=== PATIENT | male | born 1945 | race Caucasian/White ===

== ENCOUNTER → 2018-01-31 | Outpatient (CLI) | payer MEDICARE ==
[2018-01-31 09:02] VITALS: BP 158/92; PULSE 54; RESP 16; TEMP 98.2
== END | disposition home or self-care (01) ==
LOC: PROCWHC3 08:13
PROVIDERS: ATTEND Internal Medicine Endocrinology, Diabetes & Metabolism
DX: R23.2 Flushing (principal)
CPT/HCPCS: 36415; G0463; 82384; 99211

== ENCOUNTER → 2018-02-23 | Outpatient (CLI) | payer MEDICARE | END | disposition home or self-care (01) | LOC: LABWHC1 10:15 | PROVIDERS: ATTEND Internal Medicine Endocrinology, Diabetes & Metabolism | DX: R23.2 Flushing (principal) | CPT/HCPCS: 36415; 82024; 82533 ==

== ENCOUNTER → 2021-05-19 | Outpatient (CLI) | payer OTHER, MEDICARE ==
[2021-05-19 08:22] VITALS: BP 147/90; PULSE 55; RESP 18; TEMP 97.6
--- NOTE | 2021-05-19 09:01 | P.PAINCN ---
History of Present Illness - Reason for Consult Consult date: 05/19/21 - History of Present Illness This is 76 years old male with a chronic history of severe low back pain, radiation to the lower extremity, also patient had some neck pain with radiation to the upper extremity, patient had his symptoms for 30 years and he reported that the intensity of the pain increased over time, currently most of his problem is in the low back area, the intensity of the pain interferes with the quality of life and when drinking from doing activities of daily livings, do some weakness in his upper extremity, right physical therapy and he couldn't finish up secondary to the intensity of the pain, he is not able to do home exercise secondary to the pain, evaluated by neurosurgery and they did not recommend any surgical interventions Past Medical History Past Medical History: Eye Disorder, Hyperlipidemia, Hypertension, Osteoarthritis (OA), Syncope Additional Past Medical History / Comment(s): see DR Juan David [facility], passed out about 4 weeks ago, "dizzy spells", 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 Past Anesthesia/Blood Transfusion Reactions: No Reported Reaction Smoking Status: Former smoker - Past Family History Brother(s) Family Medical History: Cancer Medications and Allergies Home Medications Medication Instructions Recorded Confirmed Type Atorvastatin [Lipitor] 80 mg PO DAILY 04/09/15 05/19/21 History Clopidogrel Bisulfate [Plavix] 75 mg PO DAILY 05/19/21 05/19/21 History Isosorbide Mononitrate [Isosorbide 30 mg PO DAILY 05/19/21 05/19/21 History Mononitrate ER] Latanoprost/Pf [Latanoprost 0.005% 7.5 ml BOTH EYES HS 05/19/21 05/19/21 History Eye Drop] Metoprolol Tartrate [Lopressor] 25 mg PO DAILY 05/19/21 05/19/21 History Allergies Allergy/AdvReac Type Severity Reaction Status Date / Time No Known Allergies Allergy Verified 01/31/18 09:00 Physical Exam Vitals: Vital Signs Temp Pulse Resp BP Pulse Ox 05/19/21 08:01 97.6 F 55 L 18 147/90 96 Intake and Output 05/18/21 05/19/2105/19/21 22:59 06:59 14:59 Other: Weight 81.647 kg Physical Examinations : -Constitutiona : Cooperative , not in acute distress . -HEENT : nech : supple , no Lymphadenopathy , normal thyroid size . : eyes : no ptosis , no icterus, no photophobia . - neurologic : Cranial nerve II to XII intact , no focal neurological deffecit . -psychatric : alert , oriented X 3 , appropriate affect , intact judgment and insight . -Lymphatic : no Lymphadenopathy . - musculoskeltal : Cervical Spine motor stregnth in the deltoid and biceps, normal right side , normal Left side motor stregnth biceps and the wrist extensors normal right side ,normal left side . motor stregnth in the triceps muscle . normal Right side , normal Left side deep tendon reflexes normal at the biceps , normal at Brachioradialis , normal at triceps. cervical facet loading test: Positive Bilaterally Spurling test= positive Right , positive left. Neck distraction test= positive Right , positive left. Adrian sign= positive right, positive left . Lumber spine moter stegnth lower extremities ,thigh and legs 5/5 Right side , 5/5 Left side deep tendon reflexes : normal Knee Jerk , normal ankle Jerk lumber facet Loading Test = negative bilaterally Range of motion of the lumbar spine Flexion 30 degrees, extension 10 degrees strait leg raising test = negative bilaterally Fabere test= positive Right , and positive LT . tenderness over the Sacroiliac joint on the Right , and Left sides Interval trigger point identified in the upper lumbar paraspinal muscles Results Comments: MRI of the cervical spine multilevel cervical degenerative disc disease and multilevel cervical facet arthropathy from C2 3 C3 4 C4 5 and C5 6 MRI of the lumbar spine= multilevel lumbar bulging disc disease and multilevel lumbar facet arthropathy from L3 4 and L4 5 and L5-S1 Nerve Conduction study= lumbar radiculopathy Assessment and Plan Plan: Assessment and plan=1-Lumbar spondylosis with lumbar facet arthropathy. 2-lumbar degenerative disc disease. 3-myofascial pain syndrome lumbar paraspinal muscles. 4-cervical radiculopathy. 5-cervical spondylosis with cervical facet arthropathy. Patient will be a good candidate for diagnostic medial branch block at L3 ,L4, and L5 x2 possible RFA. he could benefit from Zanaflex 2 mg twice a day when necessary muscle spasm. he was given instruction for home exercise Time with Patient: Greater than 30 PQRS Measure Charge Sheet Measure #130: Documentation of Current Meds in Medical Chart: Patient's medications documented in chart Measure #226: Tobacco Use: Screen & Cessation Intervention: Pt not a tobacco user Measure #111: Pneumonia Vaccination: Pneumococcal vaccine NOT administered or previously given Measure #47: Advance Care Plan: Advance care planning discussed & documented, pt chose/unable to give Measure #412: Opioid Treatment Agreement: No documentation of signed opioid treatment agreement Measure #408: Opioid Therapy Follow-up Evaluation: Patient had NO f/u eval minimum every 3 months during opioid therapy Measure #317: Preventitive Care & Scrn High Bld Press & F/U: Pre-hypertensive or hypertensive BP documented, pt will f/u with PCP Measure #128: Body Mass Index (BMI) Screening & Follow-up: BMI documented within normal parameters Measure #131: Pain Assessment & Follow-up: Pain positive & plan documented, Follow-up scheduled Measure #431: Unhealthy Alcohol Use Preventative Care & Scrn: Patient not identified as an unhealthy alcohol user PQRS Narrative: Smoking Status Former smoker Blood Pressure 147/90 Pain Intensity [Bilateral Back 5 ] Scale Used Numeric (1 - 10) Hx Alcohol Use (MH) No Home Medications: Ambulatory Orders Atorvastatin [Lipitor] 80 mg PO DAILY 04/09/15 Clopidogrel Bisulfate [Plavix] 75 mg PO DAILY 05/19/21 Isosorbide Mononitrate [Isosorbide Mononitrate ER] 30 mg PO DAILY 05/19/21 Latanoprost/Pf [Latanoprost 0.005% Eye Drop] 7.5 ml BOTH EYES HS 05/19/21 Metoprolol Tartrate [Lopressor] 25 mg PO DAILY 05/19/21
== END | disposition home or self-care (01) ==
LOC: PNWHC3 07:43
PROVIDERS: ATTEND Specialist
DX: M47.812 Spondylosis without myelopathy or radiculopathy, cervical region (principal); M50.323 Other cervical disc degeneration at C6-C7 level; M46.96 Unspecified inflammatory spondylopathy, lumbar region; M79.18 Myalgia, other site; M47.896 Other spondylosis, lumbar region; M46.92 Unspecified inflammatory spondylopathy, cervical region
CPT/HCPCS: 99211

== ENCOUNTER 2021-06-27 11:05 | Day surgery (SDC) | payer OTHER, MEDICARE ==
[2021-06-26 09:55] VITALS: BMI 25.0
[~2021-06-27 11:05] MED LIST: LACTATED RINGERS 1,000 ML IV SCH
[2021-06-27 11:32] VITALS: TEMP 97
[2021-06-27] MEDS ORDERED: ROPIVACAINE 5MG/ML 20ML VIAL ONE (11:54)
[2021-06-27] MEDS ORDERED: MIDAZOLAM 2 MG/2 ML VIAL ONE (11:54)
[2021-06-27] MEDS ORDERED: methylPREDNISolone ACETATE 40 MG/ML 1 ML VIAL ONE (11:54)
[2021-06-27] MEDS ORDERED: fentaNYL (PF) 50 MCG/ML 2 ML AMP ONE (11:54)
--- NOTE | 2021-06-27 12:11 | P.PCN ---
Date of Procedure: 06/27/21 Procedure(s) Performed: PREOPERATIVE DIAGNOSIS : 1- Lumbar spondylosis with Facet Arthropathy without myelopathy . 2- Lumber degenerative disc disease POSTOPERATIVE DIAGNOSIS: 1- Lumbar spondylosis with Facet Arthropathy without myelopathy . 2- Lumber degenerative disc disease PROCEDURE: Diagnostic bilateral L3 , L4 , and L5 medial branch block under fluoroscopy guidance(fluoroscopy images available in the radiology Department ) ( To target the facet joint between bilateral L4-5 , and L5-S1 )#1st ANESTHESIA:, monitered anesthesia care. EBL: Minimal COMPLICATION: None PROCEDURE INDICATION: Chronic low back pain secondary to Facet arthropathy unresponsive to conservative treatment. PROCEDURE DESCRIPTION: the patient was seen and identified in the preop holding area , risks and benefits and possible complications of the procedure and alternative were discussed with the patient, and the patient agreed to proceed with the procedure and signed the consent and vital signs monitored during the procedure and fluoroscopy was used to maximize the benefit and accuracy of the needle placement, and sedation was given to decrease patient anxiety, patient was taken to the procedure room and placed in prone position vital signs monitored in the back prepped with chlorhexidine X3 then under strict sterile technique using a right oblique fluoroscopy ,the junction of the transverse process and the superior articulating process of the right L3 , L4 , and L5 vertebra which corresponding to the fluoroscopy image of the eye of the Markie dog on the block side for the medial branches and subsequently , after local infiltration of skin and subcu tissuies with Ropivacaine 0.5 % , one mL at each level ,then 22-gauge Quincke-type needles , 3 needle was used , each one of them placed at the junction of the base of the transverse process and the superior articular process at the appropriate level, and the needle was advanced until the periosteum contacted, needle placement confirmed with AP oblique and lateral view and after appropriate needle placement confirmed, and after negative aspiration for heme and CSF and there was no paresthesia 1-1/2 mL of Ropivacaine 0.5% mixed with 20 mg Depo-Medrol , then half mL injected at each level after negative aspiration the needle subsequently removed and the same procedure repeated for the left side at left side at L3 , L4 and L5 levels. At the end of the procedure and the needles removed and a bandage applied after the skin was cleaned the cleaning solution patient taken to recovery room in stable condition and monitors in the recovery room for 20-30 minutes and discharged home in stable condition after discharge criteria met and patient will follow up with the pain clinic in 2-4 weeks
[2021-06-27 13:08] VITALS: BP 103/68; PULSE 53; RESP 18
--- NOTE | 2021-06-27 13:16 | FL ---
Fluoroscopy HISTORY: Pain 11 seconds fluoroscopy time supplied to the referring clinician. 4 intraoperative C-arm images docum ent the procedure. See dictated report from anesthesia.
== END 2021-06-27 13:10 | disposition home or self-care (01) ==
LOC: ORPAIN 11:05
PROVIDERS: ATTEND Specialist
DX: G89.29 Other chronic pain (principal); M47.816 Spondylosis without myelopathy or radiculopathy, lumbar region
CPT/HCPCS: 64493; 64494; J2250; J1030; J3010; J2795

== ENCOUNTER 2021-08-01 09:43 | Day surgery (SDC) | payer OTHER, MEDICARE ==
[2021-07-31 09:57] VITALS: BMI 24.4
[2021-08-01 10:04] VITALS: TEMP 97.8
[2021-08-01] MEDS ORDERED: LACTATED RINGERS 1,000 ML IV ONE (10:04)
[2021-08-01] MEDS ORDERED: fentaNYL (PF) 50 MCG/ML 2 ML AMP ONE (10:28)
[2021-08-01] MEDS ORDERED: MIDAZOLAM 2 MG/2 ML VIAL ONE (10:28)
[2021-08-01] MEDS ORDERED: ROPIVACAINE 5MG/ML 20ML VIAL ONE (10:28)
[2021-08-01] MEDS ORDERED: methylPREDNISolone ACETATE 40 MG/ML 1 ML VIAL ONE (10:28)
--- NOTE | 2021-08-01 10:48 | P.PCN ---
Date of Procedure: 08/01/21 Procedure(s) Performed: PREOPERATIVE DIAGNOSIS : 1- Lumbar spondylosis with Facet Arthropathy without myelopathy . 2- Lumber degenerative disc disease POSTOPERATIVE DIAGNOSIS: 1- Lumbar spondylosis with Facet Arthropathy without myelopathy . 2- Lumber degenerative disc disease PROCEDURE: Diagnostic bilateral L3 , L4 , and L5 medial branch block under fluoroscopy guidance(fluoroscopy images available in the radiology Department ) ( To target the facet joint between bilateral L4-5 , and L5-S1 )#2nd ANESTHESIA:, monitered anesthesia care. EBL: Minimal COMPLICATION: None PROCEDURE INDICATION: Chronic low back pain secondary to Facet arthropathy unresponsive to conservative treatment. PROCEDURE DESCRIPTION: the patient was seen and identified in the preop holding area , risks and benefits and possible complications of the procedure and alternative were discussed with the patient, and the patient agreed to proceed with the procedure and signed the consent and vital signs monitored during the procedure and fluoroscopy was used to maximize the benefit and accuracy of the needle placement, and sedation was given to decrease patient anxiety, patient was taken to the procedure room and placed in prone position vital signs monitored in the back prepped with chlorhexidine X3 then under strict sterile technique using a right oblique fluoroscopy ,the junction of the transverse process and the superior articulating process of the right L3 , L4 , and L5 vertebra which corresponding to the fluoroscopy image of the eye of the Markie dog on the block side for the medial branches and subsequently , after local infiltration of skin and subcu tissuies with Ropivacaine 0.5 % , one mL at each level ,then 22-gauge Quincke-type needles , 3 needle was used , each one of them placed at the junction of the base of the transverse process and the superior articular process at the appropriate level, and the needle was advanced until the periosteum contacted, needle placement confirmed with AP oblique and lateral view and after appropriate needle placement confirmed, and after negative aspiration for heme and CSF and there was no paresthesia 1-1/2 mL of Ropivacaine 0.5% mixed with 20 mg Depo-Medrol , then half mL injected at each level after negative aspiration the needle subsequently removed and the same procedure repeated for the left side at left side at L3 , L4 and L5 levels. At the end of the procedure and the needles removed and a bandage applied after the skin was cleaned the cleaning solution patient taken to recovery room in stable condition and monitors in the recovery room for 20-30 minutes and discharged home in stable condition after discharge criteria met and patient will follow up with the pain clinic in 2-4 weeks
[2021-08-01] MEDS ORDERED: IV FLUID CONTINUATION 1,000 ML IV ONE (10:53)
[2021-08-01 11:10] VITALS: RESP 20
--- NOTE | 2021-08-01 11:20 | FL ---
Fluoroscopy HISTORY: Pain 9 seconds fluoroscopy time supplied to the referring clinician. 4 intraoperative C-arm images docume nt the procedure. See dictated report from anesthesia.
[2021-08-01 11:21] VITALS: BP 101/63; PULSE 52
== END 2021-08-01 11:33 | disposition home or self-care (01) ==
LOC: ORPAIN 09:43
PROVIDERS: ATTEND Specialist
DX: M47.816 Spondylosis without myelopathy or radiculopathy, lumbar region (principal); G89.29 Other chronic pain
CPT/HCPCS: 64493; 64494; J2250; J1030; J3010; J2795

== ENCOUNTER → 2021-08-18 | Outpatient (CLI) | payer OTHER, MEDICARE ==
[2021-08-18 09:52] VITALS: BP 135/85; PULSE 61; RESP 18; TEMP 96.1
--- NOTE | 2021-08-18 10:08 | P.PN ---
Subjective Progress Note Date: 08/18/21 This is follow up visit for this 76 years old male with a chronic history of severe low back pain, as well as with lumbar degenerative disc disease and lumbar spondylosis with lumbar facet arthropathy recently we have done diagnostic medial branch block lumbar area at L4 5 and L5-S1 x2 , she reported that he got more than 80% improvement of his low back pain after each block, his functionality and improved after the block Physical Examinations : -Constitutiona : Cooperative , not in acute distress . -HEENT : nech : supple , no Lymphadenopathy , normal thyroid size . : eyes : no ptosis , no icterus, no photophobia . - neurologic : Cranial nerve II to XII intact , no focal neurological deffecit . -psychatric : alert , oriented X 3 , appropriate affect , intact judgment and insight . -Lymphatic : no Lymphadenopathy . - musculoskeltal : Lumber spine moter stegnth lower extremities ,thigh and legs 5/5 Right side , 5/5 Left side deep tendon reflexes : normal Knee Jerk , normal ankle Jerk lumber facet Loading Test = negative bilaterally Range of motion of the lumbar spine Flexion 30 degrees, extension 10 degrees strait leg raising test = negative bilaterally Fabere test= positive Right , and positive LT . tenderness over the Sacroiliac joint on the Right , and Left sides Interval trigger point identified in the upper lumbar paraspinal muscles Results MRI of the cervical spine multilevel cervical degenerative disc disease and multilevel cervical facet arthropathy from C2 3 C3 4 C4 5 and C5 6 MRI of the lumbar spine= multilevel lumbar bulging disc disease and multilevel lumbar facet arthropathy from L3 4 and L4 5 and L5-S1 Nerve Conduction study= lumbar radiculopathy Assessment and plan=1-Lumbar spondylosis with lumbar facet arthropathy. 2-lumbar degenerative disc disease. 3-myofascial pain syndrome lumbar paraspinal muscles. 4-cervical radiculopathy. 5-cervical spondylosis with cervical facet arthropathy. he had more than 80% improvement of his low back pain after diagnostic medial branch block lumbar area x2 Patient will be a good candidate for RFA medial branch block at L3 ,L4, and L5 Bilaterlly . She had to hold Plavix for 1 week before the procedure PQRS Measure Charge Sheet Measure #130: Documentation of Current Meds in Medical Chart: Patient's medications documented in chart Measure #226: Tobacco Use: Screen & Cessation Intervention: Pt not a tobacco user Measure #111: Pneumonia Vaccination: Pneumococcal vaccine NOT administered or previously given Measure #47: Advance Care Plan: Advance care planning discussed & documented, pt chose/unable to give Measure #412: Opioid Treatment Agreement: No documentation of signed opioid treatment agreement Measure #408: Opioid Therapy Follow-up Evaluation: Patient had NO f/u eval minimum every 3 months during opioid therapy Measure #317: Preventitive Care & Scrn High Bld Press & F/U: Pre-hypertensive or hypertensive BP documented, pt will f/u with PCP Measure #128: Body Mass Index (BMI) Screening & Follow-up: BMI documented within normal parameters Measure #131: Pain Assessment & Follow-up: Pain positive & plan documented, Follow-up scheduled Measure #431: Unhealthy Alcohol Use Preventative Care & Scrn: Patient not identified as an unhealthy alcohol user PQRS Narrative: Objective - Vital Signs Vital signs: Vital Signs Temp 96.1 F L 08/18/21 09:47 Pulse 61 08/18/21 09:47 Resp 18 08/18/21 09:47 BP 135/85 08/18/21 09:47 Pulse Ox 96 08/18/21 09:47
== END | disposition home or self-care (01) ==
LOC: PNWHC3 09:06
PROVIDERS: ATTEND Specialist
DX: M47.896 Other spondylosis, lumbar region (principal); M51.36 Other intervertebral disc degeneration, lumbar region; M79.18 Myalgia, other site; M54.12 Radiculopathy, cervical region; M47.892 Other spondylosis, cervical region
CPT/HCPCS: 99211

== ENCOUNTER → 2021-11-03 | Outpatient (CLI) | payer MEDICARE, OTHER ==
[2021-11-03 10:02] VITALS: BP 137/82; PULSE 59; RESP 16; TEMP 97.4
--- NOTE | 2021-11-03 10:10 | P.PN ---
Subjective Progress Note Date: 11/03/21 Principal diagnosis: A 76 yr old male with at side with a history of severe and chronic low back pain secondary to lumbar degenerative disc diseases and lumbar spondylosis with facet arthropathy presents today for evaluation after completion of bilateral RFA of L4-L5, L5-S1 and evaluation of left hip radiating pain. Patient experienced greater than 90% pain relief with the RFA. Pain level in thr left hip is currently at 3 out of 10, throbbing in character and impairs walking gait due to pain . Patient uses a back brace and walking cane for ambulatory assistance Pain is provoked by walking and bending twisting and lifting. Pain is alleviated with medications, chiropractic treatments approximately 30 years ago, use of cane and back brace, laying supine and activity and repositioning. Interventional pain procedures completed include bilateral RFA of L4-L5, L5-S1 Patient denies any side effects of the medication(s), denies excessive drowsiness or sleepiness, denies suicidal ideation and reports that the current pain medication is helping to control the pain and improve activities of daily living. Patient denies any motor or sensory deficits. Patient denies any fever or night sweats, denies any change in the bowel movements or urination. Physical Examination: -Constitutional: Cooperative. Not in acute distress . -HEENT: Neck is supple. No lymphadenopathy. No thyromegaly. Normal thyroid size. Eyes: No ptosis , no icterus, no photophobia. ENT: No auditory deficits. Normal oropharynx. No Thrush. - Respiratory: Chest clear to auscultations bilaterally. No wheezing. No rhonchi. - Cardiovascular: Regular rate and rhythm. S1 / S2 , no S3 , no S4. - Gastrointestinal: Abdomen soft no tenderness. Bowel sounds positive in all four quadrants. No organomegaly. - Genitourinary: Deferred. - Neurologic: Cranial nerve II to XII intact. No focal neurological deficits. - Psychatric: Alert & oriented x 3. Matching mood & appropriate affect. Judgment and insight intact. - Lymphatic: No Lymphadenopathy. - Musculoskeletal: Cervical spine: Muscle bulk/ tone/ strength in the bilateral upper extremities normal. Facet loading test cervical area positive. Lumbar spine: Motor bulk/ tone/ strength lower extremities , thigh and legs : Age appropriate Deep tendon reflexes : Normal Knee Jerk. Normal Ankle Jerk . Lumbar Facet Loading Test positive Straight Leg Raise: positive at <45 degree right side/ left side Nile test: positive right side / left side Range of motion: Flexion of the lumbar spine <60 degrees Range of motion: Extension of the lumbar spine <20 degrees Severe tenderness over the Sacroiliac joint: right side / left side Assessment and plan: Chronic low back pain secondary to lumbar degenerative disc disease , lumbar spondylosis with facet arthropathy without myelopathy Recommendation of left SI joint injection Patient may need a series for sufficient pain relief Unsure as RFA of SI joint will be necessary per patient questions. Will follow-up as needed Risks, benefits of procedure discussed and patient verbalized understanding Denies use of aspirin or anticoagulants All patient questions answered MAPS reviewed and it was appropriate. I have spent 31 minutes on patient care today. Dr Franz was available by phone for the evaluation of this patient. The time was used to review the medical records including relevant urine studies and Prescription history (MAPs), review of the available imaging, evaluation and examination of the patient, coordination of care with the medical staff and if applicable referring physicians, as well as creation of the medical record Objective - Vital Signs Vital signs: Vital Signs Temp 97.4 F L 11/03/21 09:53 Pulse 59 L 11/03/21 09:53 Resp 16 11/03/21 09:53 BP 137/82 11/03/21 09:53 Pulse Ox 96 11/03/21 09:53 PQRS Measure Charge Sheet Mode of Arrival: Ambulatory, Cane - Pain Location Left Hip Non-Pharmacological Interventions: Chiropractic Treatment, Inactivity, Position/Reposition Pharmacological Interventions: Block PQRS Narrative: Smoking Status Former smoker Blood Pressure 137/82 Pain Intensity [Left Hip] 3 Pain Intensity [Back] 1 Scale Used Numeric (1 - 10) Hx Alcohol Use (MH) No Home Medications: Ambulatory Orders Clopidogrel Bisulfate [Plavix] 75 mg PO DAILY 05/19/21 Isosorbide Mononitrate [Isosorbide Mononitrate ER] 30 mg PO DAILY 05/19/21 Latanoprost/Pf [Latanoprost 0.005% Eye Drop] 1 drop BOTH EYES HS 05/19/21 Metoprolol Tartrate [Lopressor] 12.5 mg PO BID 05/19/21 Aspirin [Adult Low Dose Aspirin EC] 81 mg PO QAM 10/13/21 Atorvastatin [Lipitor] 40 mg PO DAILY 10/13/21 lisinopriL 10 mg PO QAM 10/13/21
== END | disposition home or self-care (01) ==
LOC: PNWHC3 09:40
PROVIDERS: ATTEND Physician Assistant Medical
DX: M47.896 Other spondylosis, lumbar region (principal); M51.36 Other intervertebral disc degeneration, lumbar region
CPT/HCPCS: 99211

== ENCOUNTER 2021-11-11 09:37 | Day surgery (SDC) | payer OTHER, MEDICARE ==
[2021-11-07 15:43] VITALS: BMI 25.1
[2021-11-11 10:05] VITALS: TEMP 96.5
[2021-11-11] MEDS ORDERED: methylPREDNISolone ACETATE 40 MG/ML 1 ML VIAL ONE (10:42)
[2021-11-11] MEDS ORDERED: ROPIVACAINE 5MG/ML 20ML VIAL ONE (10:42)
[2021-11-11] MEDS ORDERED: MIDAZOLAM 2 MG/2 ML VIAL ONE (10:42)
[2021-11-11] MEDS ORDERED: fentaNYL (PF) 50 MCG/ML 2 ML AMP ONE (10:42)
--- NOTE | 2021-11-11 10:58 | P.PCN ---
Date of Procedure: 11/11/21 Procedure(s) Performed: Procedure= Left sacroiliac joints steroid injection under fluoroscopy guidance (fluoroscopy image stored on file in the radiology Department ) Preoperative diagnosis= 1-left sacroiliitis 2-lumbar degenerative disc disease 3-lumbar spondylosis with facet arthropathy Postoperative diagnosis=Same as preop Diagnosis . Complication = none Condition= stable Anesthesia= moderate sedation with intravenous Versed 1 mg , and fentanyl 50 micrograms . Indication for the procedure= patient complaining of low back pain , examination was positive for severe tenderness over the sacroiliac joints bilaterally and patient diagnosed with sacroiliitis, for this reason he was good candidate for sacroiliac joint steroid injection. Description of the procedure= procedure risk and benefits discussed with the patient, including but not limited, risk of infection and bleeding, and ALLERGIC reaction to the medication and not complete pain relief and patient agreed with the preceding patient taken to the operating room, placed in prone position or standard monitors applied to the patient then after induction of anesthesia back prepped with chlorhexidine 3 times ,. Then the left sacroiliac joint steroid injection done under strict sterile technique local infiltration of the skin and subcu interstitial at the location of the left sacroiliac joint then a 22-gauge Quincke Needle advanced slowly under fluoroscopy time placed in the left sacroiliac joint, needle placement confirmed with AP and oblique and lateral view then after appropriate needle placement confirmed and after negative aspiration 0.5% Ropivacaine 4 mL and 40 mg of Depo-Medrol injected in the left sacroiliac joint after negative aspiration patient tolerated the procedure well that any complications and she will follow up in clinic 3 weeks
[2021-11-11] MEDS ORDERED: IV FLUID CONTINUATION 1,000 ML IV ONE (11:03)
[2021-11-11 11:19] VITALS: RESP 16
--- NOTE | 2021-11-11 11:21 | FL ---
EXAMINATION TYPE: FL guided pain mgmt statistic DATE OF EXAM: 11/11/2021 HISTORY: Fluoroscopy time 5 seconds of fluoroscopy provided. IMPRESSION: 1. Fluoroscopy time.
[2021-11-11 11:37] VITALS: BP 107/71; PULSE 55
== END 2021-11-11 11:57 | disposition home or self-care (01) ==
LOC: ORPAIN 09:37
PROVIDERS: ATTEND Specialist
DX: M46.1 Sacroiliitis, not elsewhere classified (principal); M47.816 Spondylosis without myelopathy or radiculopathy, lumbar region; M51.36 Other intervertebral disc degeneration, lumbar region
CPT/HCPCS: 27096; G0260; J2250; J1030; J3010; J2795; 99152